=== PATIENT | male | born 1960 | race Caucasian/White ===

== ENCOUNTER 2018-05-08 12:22 | Inpatient (IN) | payer OTHER ==
[2018-05-08 14:33] VITALS: BMI 37.0
--- NOTE | 2018-05-08 15:13 | HP ---
COWS - Scale Resting Pulse: 1= [place] 81-100 Sweatin= Chills/Flushing Restless Observation: 1= Difficult to Sit Still Pupil Size: 1= Pupils >than Normal Bone or Joint Aches: 2= Severe Diffuse Aches Runny Nose/ Eye Tearin= Runny Nose/Eyes GI Upset > 30mins: 2= Nausea/Diarrhea Tremor Observation: 2= Slight Tremor Visible Yawning Observation: 1= 1-2x During Session Anxiety or Irritability: 2=Irritable/Anxious Goose Flesh Skin: 0=Smooth Skin COWS Score: 15 CIWA Score - Admission Criteria [facility] Guidelines: Admission for Medically Managed Detox: Requires at least one of the followin. CIWA greater than 12 2. Seizures within the past 24 hours 3. Delirium tremens within the past 24 hours 4. Hallucinations within the past 24 hours 5. Acute intervention needed for co occurring medical disorder 6. Acute intervention needed for co occurring psychiatric disorder 7. Severe withdrawal that cannot be handled at a lower level of care (continued vomiting, continued diarrhea, abnormal vital signs) requiring intravenous medication and/or fluids 8. Admission ROS S - HPI Chief Complaint: i need help to stop using street methadone and percocet Allergies/Adverse Reactions: Allergies Allergy/AdvReac Type Severity Reaction Status Date / Time No Known Allergies Allergy Verified 05/08/18 14:56 History of Present Illness: this 58 years old male with street methadone and percocet dependence,withdrawal symptom,last detox [facility] 08/18/13 to 08/24/13 history of hypertension,neuropathy history of irregularity of heart beat,no med s/p right hip replacement history of fx of right hand denied psychiatric problem longest sobriety 19 years - Ebola screening Have you traveled outside of the country in the last 21 days: No Have you had contact with anyone from an Ebola affected area: No Have you been sick,other than usual withdrawal symptoms: No - Review of Systems Constitutional: Chills, Loss of Appetite, Malaise, Night Sweats, Changes in sleep, Weakness EENT: reports: Tearing, Nose Congestion Respiratory: reports: No Symptoms reported Cardiac: reports: No Symptoms Reported GI: reports: Nausea, Poor Appetite, Abdominal cramping : reports: No Symptoms Reported Musculoskeletal: reports: Back Pain, Joint Pain, Muscle Pain Integumentary: reports: Dryness Neuro: reports: Headache, Tremors Endocrine: reports: No Symptoms Reported Hematology: reports: No Symptoms Reported Psychiatric: reports: No Sypmtoms Reported, Judgement Intact, Mood/Affect Appropiate, Orientated x3 Patient History - Patient Medical History Hx Anemia: No Hx Asthma: No Hx Chronic Obstructive Pulmonary Disease (COPD): No Hx Cancer: No Hx Cardiac Disorders: No Hx Congestive Heart Failure: No Hx Hypertension: No Hx Hypercholesterolemia: No Hx Pacemaker: No HX Cerebrovascular Accident: No Hx Seizures: No Hx Dementia: No Hx Diabetes: No Hx Gastrointestinal Disorders: No Hx Liver Disease: No Hx Genitourinary Disorders: No Hx Sexually Transmitted Disorders: No Hx Renal Disease (ESRD): No Hx Thyroid Disease: No Hx Human Immunodeficiency Virus (HIV): No (never been tested for hiv) Hx Hepatitis C: No Hx Depression: No Hx Suicide Attempt: No Hx Bipolar Disorder: No Hx Schizophrenia: No Other Medical History: no suicidal,no homicidal - Patient Surgical History Past Surgical History: Yes Hx Neurologic Surgery: No Hx Cataract Extraction: No Hx Cardiac Surgery: No Hx Lung Surgery: No Hx Breast Surgery: No Hx Breast Biopsy: No Hx Abdominal Surgery: No Hx Appendectomy: No Hx Cholecystectomy: No Hx Genitourinary Surgery: No Hx Section: No Hx Orthopedic Surgery: Yes (RT. HIP REPLACEMENT [id number]) - PPD History Previous Implant?: Yes Documented Results: Negative w/o proof Implanted On Prior [facility] Admission?: Yes Date: 08/20/13 Results: 0 mm PPD to be Administered?: Yes - Smoking Cessation Smoking history: Former smoker Have you smoked in the past 12 months: No Initiated information on smoking cessation: Yes 'Breaking Loose' booklet given: 05/08/18 - Substance & Tx. History Hx Alcohol Use: No Hx Substance Use: Yes Substance Use Type: Cocaine, Opiates Hx Substance Use Treatment: Yes ([facility] 08/18/13 to 09/03/13) - Substances Abused Non-Rx Methadone Route: Oral Frequency: Daily Amount used: 70mg Age of first use: 57 Date of Last Use: 05/08/18 percocet Frequency: 3-6 times per week Amount used: 100mg Age of first use: 48 Date of Last Use: 05/06/18 Family Disease History - Family Disease History Family Disease History: Heart Disease: Mother, Other: Brother (ALCOHOL) Admission Physical Exam BHS - Vital Signs Vital Signs: Vital Signs - 24 hr 05/08/18 14:31 Temperature 98.8 F Pulse Rate 94 H Respiratory 18 Rate Blood Pressure 153/75 - Physical General Appearance: Yes: Moderate Distress, Tremorous, Irritable, Sweating, Anxious HEENTM: Yes: Normal ENT Inspection, KATHY, Pharynx Normal, Nasal Congestion Respiratory: Yes: Lungs Clear, Normal Breath Sounds, No Respiratory Distress Neck: Yes: Within Normal Limits, Supple, Trachea in good position Breast: Yes: Within Normal Limits Cardiology: Yes: Within Normal Limits, Regular Rhythm, Regular Rate, S1, S2 Abdominal: Yes: Within Normal Limits, Normal Bowel Sounds, Non Tender, Flat, Soft Genitourinary: Yes: Within Normal Limits Back: Yes: Muscle Spasm Musculoskeletal: Yes: full range of Motion, Back pain, Muscle Pain Extremities: Yes: Normal Range of Motion, Tremors Neurological: Yes: network account manager II-XII NML intact, Alert, Motor Strength 5/5 Integumentary: Yes: Dry Lymphatic: Yes: Within Normal Limits - Diagnostic (1) Opioid dependence with withdrawal Current Visit: Yes Status: Acute (2) Cocaine dependence Current Visit: Yes Status: Acute (3) Nicotine dependence Current Visit: Yes Status: Acute (4) Essential hypertension Current Visit: Yes Status: Acute (5) Neuropathy Current Visit: Yes Status: Acute (6) History of right hip replacement Current Visit: Yes Status: Acute Cleared for Admission [facility] - Detox or Rehab [facility] Level of Care: Medically Managed Detox Regimen/Protocol: Methadone [facility] Breath Alcohol Content Breath Alcohol Content: 0 Urine Drug Screen - Results Drug Screen Negative: No Urine Drug Screen Results: BZO-Benzodiazepines, MTD-Methadone, OXY-Oxycodone, BUP-Suboxone
[2018-05-08] MEDS ORDERED: guaiFENesin/D-METHORPHAN HB 10 ML UNIT-DOSE CUPS PO PRN (15:23)
[2018-05-08] MEDS ORDERED: hydrOXYzine PAMOATE 50 MG CAPSULE (FP) PO PRN (15:23)
[2018-05-08] MEDS ORDERED: P-EPHED 60MG/TRIPROLIDI 2.5MG TABLET PO PRN (15:23)
[2018-05-08] MEDS ORDERED: MENTHOL/PHENOL 1 EACH UD MM PRN (15:23)
[2018-05-08] MEDS ORDERED: MAGNESIUM CITRATE 300 ML BOTTLE PO PRN (15:23)
[2018-05-08] MEDS ORDERED: LOPERAMIDE HCL 2 MG CAPSULE PO PRN (15:23)
[2018-05-08] MEDS ORDERED: MAG HYDROX/AL HYDROX/SIMETH 30 ML UNIT-DOSE CUP PO PRN (15:23)
[2018-05-08] MEDS ORDERED: MAGNESIUM HYDROX 2400MG/30ML ORAL SUSPENSION 30 ML CUP PO PRN (15:23)
[2018-05-08] MEDS ORDERED: METHADONE HCL 10 MG TABLET (FOR DETOX USE ONLY) PO ONE ×2 (16:30→23:00)
[2018-05-08] MEDS: amLODIPine BESYLATE 10 MG TABLET (FP) PO SCH (18:06)
[2018-05-08] MEDS: diazePAM 5 MG TABLET PO PRN ×2 (18:06→22:10)
[2018-05-08] MEDS: GABAPENTIN 300 MG CAPSULE (FP) PO SCH (22:09)
[2018-05-08] MEDS: THIAMINE HCL 100 MG TABLET (FP) PO SCH (22:09)
[2018-05-08] MEDS: MELATONIN 5 MG TABLETS PO PRN (22:11)
[2018-05-09] MEDS: GABAPENTIN 300 MG CAPSULE (FP) PO SCH ×3 (05:23→22:09)
[2018-05-09] MEDS: diazePAM 5 MG TABLET PO PRN ×3 (05:23→22:09)
[2018-05-09] MEDS ORDERED: METHADONE HCL 10 MG TABLET (FOR DETOX USE ONLY) PO ONE (10:00)
--- NOTE | 2018-05-09 10:01 | PN ---
BHS COWS - Scale Resting Pulse: 0= [place] 80 or Below Sweatin= Chills/Flushing Restless Observation: 1= Difficult to Sit Still Pupil Size: 1= Pupils >than Normal Bone or Joint Aches: 2= Severe Diffuse Aches Runny Nose/ Eye Tearin= Nasal Congestion GI Upset > 30mins: 1= Stomach Cramp Tremor Observation of Outstretched Hands: 1= Tremor [place], Not Seen Yawning Observation: 2= >3x During Session Anxiety or Irritability: 1=Feels Anxious/Irritable Goose Flesh Skin: 0=Smooth Skin COWS Score: 11 S Progress Note (SOAP) Subjective: back pain body aches joints pain tremor sweat Objective: 05/09/18 10:01 Vital Signs Temperature 97.4 F L 05/09/18 06:14 Pulse Rate 61 05/09/18 06:14 Respiratory Rate 18 05/09/18 06:14 Blood Pressure 101/56 L 05/09/18 06:14 O2 Sat by Pulse Oximetry (%) lab pending Assessment: 05/09/18 10:02 withdrawal sx Plan: continue detox
[2018-05-09 10:21] LABS: HEMATOCRIT 43.5 % (35.4-49); HEMOGLOBIN 13.7 GM/dL (11.7-16.9); MCH 28.7 pg (25.7-33.7); MCHC 31.6 g/dl (32.0-35.9); MEAN CELL VOLUME 90.9 fl (80-96); MEAN PLT VOLUME 8.1 fl (7.5-11.1); PLATELET COUNT 269 K/MM3 (134-434); RBC 4.78 M/mm3 (4.00-5.60); RDW 14.1 % (11.9-15.9); WHITE BLOOD COUNT 6.3 K/mm3 (4.0-10.0)
[2018-05-09] MEDS: PRENATAL VITAMINS W/ FOLIC ACID TABLET (FP) PO SCH (10:33)
[2018-05-09] MEDS: amLODIPine BESYLATE 10 MG TABLET (FP) PO SCH (10:33)
[2018-05-09 10:50] LABS: ALBUMIN 3.4 g/dl (3.4-5.0); ALK PHOS 88 U/L (45-117); ANION GAP 9 MMOL/L (8-16); BILIRUBIN,TOTAL 0.2 mg/dL (0.2-1); BLOOD UREA NITROGEN 16 mg/dL (7-18); CHLORIDE 103 mmol/L (98-107); CO2 26 mmol/L (21-32); CREATININE 1.1 mg/dL (0.55-1.3); GLUCOSE,RANDOM 108 mg/dL (74-106); POTASSIUM 3.9 mmol/L (3.5-5.1); SGOT/AST 15 U/L (15-37); SGPT/ALT 23 U/L (13-61); SODIUM 138 mmol/L (136-145); TOT PROT 7.8 g/dl (6.4-8.2)
[2018-05-09 10:53] LABS: CALCIUM 6.8 mg/dL (8.5-10.1)
[2018-05-09] MEDS ORDERED: FLU VACCINE QUAD 60 MCG/0.5 ML (MDV 18-19) IM ONE (12:00)
[2018-05-09] MEDS: CALCIUM 250MG/VIT-D 125 UNITS 1 COMBO TABLET PO SCH ×2 (14:28→22:10)
[2018-05-09] MEDS: THIAMINE HCL 100 MG TABLET (FP) PO SCH (22:09)
[2018-05-09] MEDS: IBUPROFEN 400 MG TABLET (FP) PO PRN (22:11)
[2018-05-10] MEDS: diazePAM 5 MG TABLET PO PRN ×4 (05:21→22:07)
[2018-05-10] MEDS: GABAPENTIN 300 MG CAPSULE (FP) PO SCH ×3 (05:21→22:07)
[2018-05-10] MEDS: PRENATAL VITAMINS W/ FOLIC ACID TABLET (FP) PO SCH (09:55)
[2018-05-10] MEDS: amLODIPine BESYLATE 10 MG TABLET (FP) PO SCH (09:55)
[2018-05-10] MEDS: CALCIUM 250MG/VIT-D 125 UNITS 1 COMBO TABLET PO SCH ×2 (09:56→22:08)
[2018-05-10] MEDS: ACETAMINOPHEN 325 MG TABLET (FP) PO PRN ×2 (09:56→15:06)
[2018-05-10] MEDS ORDERED: METHADONE HCL 5 MG TABLET (FOR DETOX USE ONLY) PO ONE (10:00)
--- NOTE | 2018-05-10 14:48 | PN ---
BHS COWS - Scale Resting Pulse: 0= [place] 80 or Below Sweatin= No chills or Flushing Restless Observation: 0= Sits Still Pupil Size: 0= Normal to Room Light Bone or Joint Aches: 1= Mild Discomfort Runny Nose/ Eye Tearin= None GI Upset > 30mins: 1= Stomach Cramp Tremor Observation of Outstretched Hands: 0= None Yawning Observation: 0= None Anxiety or Irritability: 0= None Goose Flesh Skin: 0=Smooth Skin COWS Score: 2 BHS Progress Note (SOAP) Subjective: Pt states he is doing well with detox protocol O: Vital Signs - 24 hr 05/09/18 05/09/18 05/10/18 17:21 21:14 00:30 Temperature 96.7 F L 97 F L Pulse Rate 75 72 Respiratory 18 18 18 Rate Blood Pressure 130/75 120/70 05/10/18 05/10/18 05/10/18 03:30 06:05 09:54 Temperature 97.1 F L 97.1 F L Pulse Rate 79 80 Respiratory 18 18 20 Rate Blood Pressure 122/83 127/88 05/10/18 13:33 Temperature 98.6 F Pulse Rate 98 H Respiratory 20 Rate Blood Pressure 122/74 Laboratory Tests 05/09/18 05/09/18 05/09/18 05:45 05:45 05:45 WBC 6.3 RBC 4.78 Hgb 13.7 Hct 43.5 D MCV 90.9 MCH 28.7 MCHC 31.6 L RDW 14.1 Plt Count 269 D MPV 8.1 Sodium 138 Potassium 3.9 Chloride 103 Carbon Dioxide 26 Anion Gap 9 BUN 16 Creatinine 1.1 Creat Clearance w eGFR > 60 Random Glucose 108 H Calcium 6.8 L* Total Bilirubin 0.2 AST 15 ALT 23 Alkaline Phosphatase 88 Total Protein 7.8 Albumin 3.4 RPR Titer Nonreactive low calcium a/p: Opioid use disorder- continue detox protocol- pt doing well pt on calcium for supplementation
[2018-05-10] MEDS: THIAMINE HCL 100 MG TABLET (FP) PO SCH (22:07)
[2018-05-11] MEDS: ACETAMINOPHEN 325 MG TABLET (FP) PO PRN ×2 (04:30→14:10)
[2018-05-11] MEDS: diazePAM 5 MG TABLET PO PRN ×3 (05:20→14:45)
[2018-05-11] MEDS: GABAPENTIN 300 MG CAPSULE (FP) PO SCH ×3 (05:20→22:37)
[2018-05-11] MEDS ORDERED: METHADONE HCL 5 MG TABLET (FOR DETOX USE ONLY) PO ONE (10:00)
[2018-05-11] MEDS: amLODIPine BESYLATE 10 MG TABLET (FP) PO SCH (10:21)
[2018-05-11] MEDS: IBUPROFEN 400 MG TABLET (FP) PO PRN ×2 (10:21→15:21)
[2018-05-11] MEDS: PRENATAL VITAMINS W/ FOLIC ACID TABLET (FP) PO SCH (10:25)
[2018-05-11] MEDS: CALCIUM 250MG/VIT-D 125 UNITS 1 COMBO TABLET PO SCH ×2 (10:25→22:45)
--- NOTE | 2018-05-11 12:10 | PN ---
BHS Progress Note Note: PATIENT CONTINUES WITH DETOX REGIMEN. C/O NIGHT SWEATS. DENIES MUSCLE ACHES AND TWITCHING. Laboratory Tests 05/09/18 05/09/18 05/09/18 05:45 05:45 05:45 WBC 6.3 RBC 4.78 Hgb 13.7 Hct 43.5 D MCV 90.9 MCH 28.7 MCHC 31.6 L RDW 14.1 Plt Count 269 D MPV 8.1 Sodium 138 Potassium 3.9 Chloride 103 Carbon Dioxide 26 Anion Gap 9 BUN 16 Creatinine 1.1 Creat Clearance w eGFR > 60 Random Glucose 108 H Calcium 6.8 L* Total Bilirubin 0.2 AST 15 ALT 23 Alkaline Phosphatase 88 Total Protein 7.8 Albumin 3.4 RPR Titer Nonreactive Vital Signs Temperature 97.2 F L 05/11/18 09:21 Pulse Rate 97 H 05/11/18 09:21 Respiratory Rate 20 05/11/18 09:21 Blood Pressure 118/70 05/11/18 09:21 O2 Sat by Pulse Oximetry (%) PE: ALERT AND ORIENTED X 3 SKIN WARM AND DRY CAR S1S2 RESP CTA EXT FULL ROM A/P HYPOCALCEMIA WITHDRAWAL SX CONTINUE DETOX CALCIUM SUPP ORDERED REPEAT CMP MONITOR
[2018-05-11] MEDS: THIAMINE HCL 100 MG TABLET (FP) PO SCH (22:37)
[2018-05-12] MEDS: GABAPENTIN 300 MG CAPSULE (FP) PO SCH ×3 (05:25→22:10)
[2018-05-12] MEDS ORDERED: METHADONE HCL 10 MG TABLET (FOR DETOX USE ONLY) PO ONE (10:00)
[2018-05-12] MEDS: amLODIPine BESYLATE 10 MG TABLET (FP) PO SCH (10:08)
[2018-05-12] MEDS: CALCIUM 250MG/VIT-D 125 UNITS 1 COMBO TABLET PO SCH ×2 (10:08→22:11)
[2018-05-12] MEDS: IBUPROFEN 400 MG TABLET (FP) PO PRN ×2 (10:09→23:18)
[2018-05-12] MEDS: PRENATAL VITAMINS W/ FOLIC ACID TABLET (FP) PO SCH (10:10)
[2018-05-12 11:15] LABS: ALBUMIN 3.5 g/dl (3.4-5.0); ALK PHOS 75 U/L (45-117); ANION GAP 7 MMOL/L (8-16); BILIRUBIN,TOTAL 0.1 mg/dL (0.2-1); BLOOD UREA NITROGEN 14 mg/dL (7-18); CALCIUM 9.2 mg/dL (8.5-10.1); CHLORIDE 103 mmol/L (98-107); CO2 30 mmol/L (21-32); CREATININE 0.8 mg/dL (0.55-1.3); GLUCOSE,RANDOM 97 mg/dL (74-106); POTASSIUM 4.7 mmol/L (3.5-5.1); SGOT/AST 14 U/L (15-37); SGPT/ALT 21 U/L (13-61); SODIUM 139 mmol/L (136-145); TOT PROT 6.9 g/dl (6.4-8.2)
--- NOTE | 2018-05-12 12:10 | PN ---
BHS Progress Note (SOAP) Subjective: Pt states feeling fine, would like to leave [facility] of operations for therapy to get back to [place]. O: Vital Signs - 24 hr 05/11/18 05/11/18 05/11/18 13:29 17:39 21:18 Temperature 98.7 F 97.1 F L 97.1 F L Pulse Rate 61 82 93 H Respiratory 18 18 18 Rate Blood Pressure 107/66 107/71 129/75 05/12/18 05/12/18 05/12/18 00:30 03:18 06:23 Temperature 98.4 F Pulse Rate 62 Respiratory 18 18 18 Rate Blood Pressure 142/82 05/12/18 09:19 Temperature 98.6 F Pulse Rate 78 Respiratory 18 Rate Blood Pressure 128/77 Laboratory Tests 05/09/18 05/09/18 05/09/18 05:45 05:45 05:45 WBC 6.3 RBC 4.78 Hgb 13.7 Hct 43.5 D MCV 90.9 MCH 28.7 MCHC 31.6 L RDW 14.1 Plt Count 269 D MPV 8.1 Sodium 138 Potassium 3.9 Chloride 103 Carbon Dioxide 26 Anion Gap 9 BUN 16 Creatinine 1.1 Creat Clearance w eGFR > 60 Random Glucose 108 H Calcium 6.8 L* Total Bilirubin 0.2 AST 15 ALT 23 Alkaline Phosphatase 88 Total Protein 7.8 Albumin 3.4 RPR Titer Nonreactive 05/12/18 07:00 WBC RBC Hgb Hct MCV MCH MCHC RDW Plt Count MPV Sodium 139 Potassium 4.7 Chloride 103 Carbon Dioxide 30 Anion Gap 7 L BUN 14 Creatinine 0.8 Creat Clearance w eGFR > 60 Random Glucose 97 Calcium 9.2 Total Bilirubin 0.1 L AST 14 L ALT 21 Alkaline Phosphatase 75 Total Protein 6.9 Albumin 3.5 RPR Titer low calcium a/p: continue methadone detox protocol d/c home tomorrow pt on calcium replacement
[2018-05-12] MEDS: THIAMINE HCL 100 MG TABLET (FP) PO SCH (22:11)
[2018-05-12] MEDS: MELATONIN 5 MG TABLETS PO PRN (22:11)
[2018-05-13] MEDS: GABAPENTIN 300 MG CAPSULE (FP) PO SCH (05:26)
[2018-05-13] MEDS ORDERED: METHADONE HCL 5 MG TABLET (FOR DETOX USE ONLY) PO ONE (06:00)
[2018-05-13 06:19] VITALS: BP 153/79; PULSE 83; TEMP 96.4
--- NOTE | 2018-05-13 09:46 | PN ---
S Progress Note (SOAP) Subjective: alert,no complaint Objective: 05/13/18 09:44 Vital Signs Temperature 96.4 F L 05/13/18 06:18 Pulse Rate 83 05/13/18 06:18 Respiratory Rate 18 05/13/18 06:18 Blood Pressure 153/79 05/13/18 06:18 O2 Sat by Pulse Oximetry (%) Assessment: 05/13/18 09:44 detox completed,no withdrawal symptom Plan: discharge today,follow up with after care program as arrangement
--- NOTE | 2018-05-13 09:50 | DS ---
[facility] Detox Discharge Summary Admission Date: 05/08/18 Discharge Date: 05/13/18 - History Present History: Cocaine Dependence, Opioid Dependence Additional Comments: follow up with after care program as arrangement Pertinent Past History: nicotine dependence essential hypertension neuropathy history of right hip replacement - Physical Exam Results Vital Signs: Vital Signs Temperature 96.4 F L 05/13/18 06:18 Pulse Rate 83 05/13/18 06:18 Respiratory Rate 18 05/13/18 06:18 Blood Pressure 153/79 05/13/18 06:18 O2 Sat by Pulse Oximetry (%) Pertinent Admission Physical Exam Findings: withdrawal symptom Laboratory Last Values WBC 6.3 K/mm3 (4.0-10.0) 05/09/18 05:45 RBC 4.78 M/mm3 (4.00-5.60) 05/09/18 05:45 Hgb 13.7 GM/dL (11.7-16.9) 05/09/18 05:45 Hct 43.5 % (35.4-49) D 05/09/18 05:45 MCV 90.9 fl (80-96) 05/09/18 05:45 MCH 28.7 pg (25.7-33.7) 05/09/18 05:45 MCHC 31.6 g/dl (32.0-35.9) L 05/09/18 05:45 RDW 14.1 % (11.9-15.9) 05/09/18 05:45 Plt Count 269 K/MM3 (134-434) D 05/09/18 05:45 MPV 8.1 fl (7.5-11.1) 05/09/18 05:45 Sodium 139 mmol/L (136-145) 05/12/18 07:00 Potassium 4.7 mmol/L (3.5-5.1) 05/12/18 07:00 Chloride 103 mmol/L (98-107) 05/12/18 07:00 Carbon Dioxide 30 mmol/L (21-32) 05/12/18 07:00 Anion Gap 7 MMOL/L (8-16) L 05/12/18 07:00 BUN 14 mg/dL (7-18) 05/12/18 07:00 Creatinine 0.8 mg/dL (0.55-1.3) 05/12/18 07:00 Creat Clearance w eGFR > 60 (>60) 05/12/18 07:00 Random Glucose 97 mg/dL (74-106) 05/12/18 07:00 Calcium 9.2 mg/dL (8.5-10.1) 05/12/18 07:00 Total Bilirubin 0.1 mg/dL (0.2-1) L 05/12/18 07:00 AST 14 U/L (15-37) L 05/12/18 07:00 ALT 21 U/L (13-61) 05/12/18 07:00 Alkaline Phosphatase 75 U/L (45-117) 05/12/18 07:00 Total Protein 6.9 g/dl (6.4-8.2) 05/12/18 07:00 Albumin 3.5 g/dl (3.4-5.0) 05/12/18 07:00 RPR Titer Nonreactive (NONREACTIVE) 05/09/18 05:45 - Treatment Hospital Course: Detox Protocol Followed, Detoxed Safely, Responded well, Discharged Condition Good Patient has Accepted a Rehab Referral to: declined - Medication Discharge Medications: Ambulatory Orders Amlodipine Besylate [Norvasc -] 10 mg PO DAILY 05/08/18 Gabapentin [Neurontin] 600 mg PO TID 05/08/18 - Diagnosis (1) Opioid dependence with withdrawal Status: Acute (2) Cocaine dependence Status: Acute (3) Nicotine dependence Status: Acute (4) Essential hypertension Status: Acute (5) Neuropathy Status: Acute (6) History of right hip replacement Status: Acute - AMA Did Patient Leave Against Medical Advice: No
== END 2018-05-13 06:50 | disposition home or self-care (01) | DRG 773 ==
LOC: YASAS 12:22 → Y3N 15:30
PROC: HZ2ZZZZ Detoxification Services for Substance Abuse Treatment (ICD-10-PCS; principal; 2018-05-08)
DX: F11.23 Opioid dependence with withdrawal (principal); F14.20 Cocaine dependence, uncomplicated; F17.210 Nicotine dependence, cigarettes, uncomplicated; I10 Essential (primary) hypertension; G62.9 Polyneuropathy, unspecified; E83.51 Hypocalcemia; Z96.641 Presence of right artificial hip joint
CPT/HCPCS: 36415; 80053; 85027; 86593; 90688; G0008